=== PATIENT | male | born 1975 ===

== ENCOUNTER 2020-09-14 01:44 | Emergency (ER) | payer SELFPAY ==
[2020-09-14] MEDS ORDERED: EPINEPHrine 1 MG/10 ML SYRINGE ONE (01:45)
[2020-09-14] MEDS ORDERED: SODIUM BICARB 8.4% 50 MEQ/50 ML SYRINGE IV ONE (01:45)
--- NOTE | 2020-09-14 01:59 | Emergency Department Report ---
HPI - General Time Seen by Provider: 09/14/20 01:55 - HPI HPI: Room 21 The patient is a 45-year-old male present with a chief complaint of cardiac arrest. Per EMS the patient was at a [employer] and dancing on the dance floor when he collapsed. EMS arrived on scene at 01:10 to find the patient in V. fib. ACLS protocols were initiated. The patient was intubated using a Sixto airway. EMS administered 4 rounds of epinephrine and attempted to defibrillate 4 times. Patient was also administered amiodarone 300 mg by EMS prior to arrival. Upon arrival to the ED ACLS protocols were continued. The Sixto airway was removed and the patient was intubated by myself using 8.0 ET tube. ACLS protocols were continued but there was no return of spontaneous circulation ED Past Medical Hx - Past Medical History Previous Medical History?: No - Surgical History Past Surgical History?: No - Family History Family history: no significant - Social History Smoking Status: Unknown if ever smoked Substance Use Type: None ED Review of Systems ROS: Stated complaint: CARDIAC ARREST Other details as noted in HPI Comment: Unobtainable due to pts medical conditions Physical Exam - Physical Exam Physical Exam: GENERAL: The patient is well-developed well-nourished male lying on stretcher being bagged via Sixto airway and receiving chest compressions from EMS. [] HEENT: Normocephalic. Atraumatic. NECK: Trachea midline CHEST/LUNGS: No spontaneous respirations. Sounds equal bilaterally with bagging after intubation by myself HEART/CARDIOVASCULAR: No heart sounds. Asystole on monitor ABDOMEN: Abdomen is soft SKIN: There is no rash. There is no edema. There is no diaphoresis. NEURO: GCS 3 T MUSCULOSKELETAL: There is no evidence of acute injury. - Intubation Time Out Performed: No Sedative: none Laryngoscope: Alexia Size: 3 ET Tube Size: 8 Tube Secured Depth (cm): 24 Tube Secured Location: lips Tube Placement Confirmation: visualized tube passing t, equal breath sounds bilat, no breath sounds over epi, confirmation by capnometr Patient Tolerated Procedure: no complications Intubation Complications: none ED Medical Decision Making - Differential Diagnosis Cardiac arrest Critical care attestation.: If time is entered above; I have spent that time in minutes in the direct care of this critically ill patient, excluding procedure time. ED Disposition Clinical Impression: Cardiac arrest Disposition: DC-20 Is pt being admited?: No Does the pt Need Aspirin: No Condition: Poor Time of Disposition: 01:55 (Patient )
== END 2020-09-14 04:50 ==
LOC: ED 01:44
DX: I46.9 Cardiac arrest, cause unspecified (principal)
CPT/HCPCS: 31500; 99285; J0171